=== PATIENT | female | born 1970 ===

== ENCOUNTER 2017-12-09 16:54 | Emergency (ER) | payer MEDICAID ==
[2017-12-09 16:55] VITALS: BMI 23.3
[2017-12-09 17:03] VITALS: BP 146/85; PULSE 82; RESP 18; TEMP 98.2; O2SAT 100
--- NOTE | 2017-12-09 17:24 | C.PDOC ---
History Of Present Illness 47yo female with history of chronic neck pain, comes to ER via EMS from physical therapy for evaluation of worsening neck pain. Patient states she had not been to therapy for over 1 year and today was her first day back. She reports while she was getting therapy, she felt a pain in her upper neck/lower head region which then radiated to her entire head. She reports "electric shocks " to head, associated blurry vision, feeling tremulous and almost fell from standing position. The facility called EMS. Patient reports on arrival, she is asymptomatic and feels much better and took her Percocet. Patient states this has occurred in the past, which is why she stopped PT. However, she states Dr Hathaway insisted she return for therapy or she would not receive her pain medications. She denies any weakness, numbness, vision changes, persistent headache, or vomiting. Time Seen by Provider: 12/09/17 17:06 Chief Complaint (Nursing): Back Pain History Per: Patient History/Exam Limitations: no limitations Onset/Duration Of Symptoms: Mins Current Symptoms Are (Timing): Better Quality Of Discomfort: "Pain" Previous Symptoms: Neck Pain, Chronic Pain Associated Symptoms: denies: New Weakness, New Numbness Additional History Per: Patient Past Medical History Reviewed: Historical Data, Nursing Documentation, Vital Signs Vital Signs: Last Vital Signs Temp 98.2 F 12/09/17 16:59 Pulse 82 12/09/17 16:59 Resp 18 12/09/17 16:59 BP 146/85 12/09/17 16:59 Pulse Ox 100 12/09/17 17:29 - Medical History PMH: Back Problems (herniated disc), Depression, Gastritis, Rheumatoid Arthritis , Sleep Apnea, Chronic Pain (Spinal Stenosis) Surgical History: Tonsillectomy, - [facility] IMMOBILIZ/WOUND ATTN NEC (11/03/14) INJECT/INFUSE NEC (07/01/14) Family History: States: Unknown Family Hx - Social History Hx Tobacco Use: Yes Hx Alcohol Use: No Hx Substance Use: No - Immunization History Hx Tetanus Toxoid Vaccination: No Hx Influenza Vaccination: No Hx Pneumococcal Vaccination: No Review Of Systems Except As Marked, All Systems Reviewed And Found Negative. Eyes: Negative for: Vision Change Musculoskeletal: Positive for: Neck Pain (now resolved) Neurological: Positive for: Headache (now resolved). Negative for: Weakness, Numbness Physical Exam - Physical Exam Appears: Non-toxic, No Acute Distress Skin: Normal Color, Warm, Dry Head: Atraumatic, Normacephalic Eye(s): bilateral: Normal Inspection, EOMI Neck: Normal ROM, No Midline Cervical Tenderness, Paracervical Tenderness (mild) , No Step Off Deformity, Supple Chest: Symmetrical Cardiovascular: Rhythm Regular Respiratory: Normal Breath Sounds Back: No CVA Tenderness, No Vertebral Tenderness Extremity: Bilateral: Atraumatic, Normal Color And Temperature, Normal ROM Neurological/Psych: Oriented x3, Normal Speech Gait: Steady ED Course And Treatment O2 Sat by Pulse Oximetry: 100 (RA) Pulse Ox Interpretation: Normal Medical Decision Making Medical Decision Making: Impression: Exacerbation of chronic neck pain; Patient better on arrival to ED. Patient accompanied by family member. Patient states she does not want any medication or anything further. She wants note to not have PT. I explained she will need to discuss with her primary physician or with pain management. Patient otherwise asymptomatic in ER and stable for discharge home. Disposition Counseled Patient/Family Regarding: Diagnosis, Need For Followup, Rx Given - Disposition Referrals: Nando Hathaway MD [Staff Provider] - Disposition: HOME/ ROUTINE Disposition Time: 17:25 Condition: GOOD Additional Instructions: Please continue with your usual medications and follow up with your doctor Instructions: Chronic Neck Pain (DC) Forms: [facility] (Bahamian) - POA Present On Arrival: None - Clinical Impression Clinical Impression: Exacerbation of chronic back pain, Neck pain - PA / FOUNDRY TENDER / Resident Statement MD/DO has reviewed & agrees with the documentation as recorded. - Scribe Statement The provider has reviewed the documentation as recorded by the Audrey Laws Provider Attestation: All medical record entries made by the Audrey were at my direction and personally dictated by me. I have reviewed the chart and agree that the record accurately reflects my personal performance of the history, physical exam, medical decision making, and the department course for this patient. I have also personally directed, reviewed, and agree with the discharge instructions and disposition.
== END 2017-12-09 17:25 | disposition home or self-care (01) ==
LOC: C.ER 16:54
DX: M54.2 Cervicalgia (principal); G89.29 Other chronic pain; M54.9 Dorsalgia, unspecified